=== PATIENT | female | born 1985 | race African-American/Black ===

== ENCOUNTER 2019-02-26 07:54 | Emergency (ER) | payer OTHER ==
[~2019-02-26] VITALS: Ht 147.3 cm; Wt 68.0 kg
[2019-02-26] MEDS ORDERED: NIFEDIPINE ER30 MG PO (08:05)
[2019-02-26] MEDS ORDERED: TRANDATE 200 M200 M1 PO (08:05)
[2019-02-26] MEDS ORDERED: CLINDAMYCIN HC150 MG PO (08:34)
[2019-02-26 08:47] VITALS: BP 170/96
== END 2019-02-26 08:49 | disposition home or self-care (01) ==
LOC: ER 07:54
DX: L02.411 Cutaneous abscess of right axilla (principal); I10 Essential (primary) hypertension